=== PATIENT | female | born 1980 | race Caucasian/White ===

== ENCOUNTER 2018-09-11 19:29 | Emergency (ER) | payer OTHER ==
[2018-09-11] MEDS ORDERED: Ibuprofen 200 MG TAB ONE (19:56)
--- NOTE | 2018-09-11 20:11 | RAD ---
FEXAM: Left knee radiographs 4 views PROVIDED CLINICAL HISTORY: Pain FINDINGS: There is no evidence for fracture or other acute osseous abnormality. Alignment appears anatomic. Shadia nt spaces appear preserved. Osteophyte formation is seen about the medial femorotibial joint. IMPRESSION: No evidence for an acute osseous abnormality. If there is persistent clinical concern, conservative m anagement and follow-up imaging advised.
== END 2018-09-11 20:18 | disposition home or self-care (01) ==
LOC: SCSER 19:29
DX: M25.562 Pain in left knee (principal); E11.9 Type 2 diabetes mellitus without complications; E27.5 Adrenomedullary hyperfunction

== ENCOUNTER 2018-09-23 23:33 | Emergency (ER) | payer OTHER ==
[2018-09-24 00:35] LABS: #Basophils 0.1 thou/uL (0.0-0.2); #Eosinphils 0.2 thou/uL (0.0-0.7); #Lymphocytes 1.1 thou/uL (1.20-3.40); #Monocytes 0.3 thou/uL (0.11-0.59); #Neutrophils 3.8 thou/uL (1.40-6.50); %Basophils 1.2 % (0.0-1.0); %Lymphocytes 20.4 % (21.0-51.0); %Monocytes 6.3 % (0.0-10.0); %Neutrophils 69.1 % (42.0-75.0); Hemoglobin 12.7 g/dL (12.0-16.0); Mean Corpuscular HGB CONC 34.1 g/dL (32.0-36.0); Mean Corpuscular Hemoglobin 30.2 pg (27.0-31.0); Mean Corpuscular Volume 88.5 fL (78.0-98.0); Mean Platelet Volume 8.4 fL (7.4-10.4); Platelet Count 224 thou/uL (130-400); RBC Distribution Width 12.8 % (11.5-14.5); White Blood Cell (WBC) Count 5.4 thou/uL (4.8-10.8)
[2018-09-24 00:57] LABS: ALT (SGPT) 19 U/L (8-55); AST (SGOT) 13 U/L (5-34); Albumin 4.3 g/dL (3.5-5.0); Alkaline Phosphatase 79 U/L (40-150); Anion Gap 12 mmol/L (10-20); BUN (Urea Nitrogen) 13 mg/dL (7.0-18.7); Bilirubin, Total 0.4 mg/dL (0.2-1.2); Calc. Creatinine Clearance 0 mL/min (70-130); Calcium 9.3 mg/dL (7.8-10.44); Carbon Dioxide 24 mmol/L (22-29); Chloride 104 mmol/L (98-107); Estimated GFR-MDRD 74; Glucose 313 mg/dL (70-105); Lipase 26 U/L (8-78); Potassium 4.3 mmol/L (3.5-5.1); Protein, Total 7.3 g/dL (6.0-8.3); Sodium 136 mmol/L (136-145)
== END 2018-09-24 01:55 | disposition home or self-care (01) ==
LOC: ERS 23:33
DX: N61.0 Mastitis without abscess (principal); E11.65 Type 2 diabetes mellitus with hyperglycemia; E27.5 Adrenomedullary hyperfunction; Z79.4 Long term (current) use of insulin
CPT/HCPCS: 36415; 36416; 80053; 82010; 83690; 84484; 85025; 93005; 96360